=== PATIENT | male | born 1975 | race Caucasian/White ===

== ENCOUNTER 2016-11-29 09:47 | Day surgery (SDC) | payer MEDICAID ==
[~2016-11-29 09:47] MED LIST: LACTATED RINGERS 1000 ML IV PRN; LIDOCAINE 0.5% INJ-PF (5 MG/ML) 50 ML SDV SUBCUT PRN
[2016-11-29] MEDS ORDERED: ALBUTEROL SULFATE 0.083% NEB 2.5 MG/3 ML AMPUL NEB ONE (10:41)
[2016-11-29] MEDS ORDERED: MIDAZOLAM 2 MG/2 ML INJ ONE (10:51)
[2016-11-29] MEDS ORDERED: PROPOFOL INJ 200 MG/20 ML VIAL IV ONE (10:52)
--- NOTE | 2016-11-29 11:41 | Operative Report ---
Operative Report DATE OF SURGERY: 11/29/16 Operative Report: The risks, benefits and alternatives of the procedure including risks of bleeding, perforation requiring surgery are explained to the patient detail and informed consent was obtained. Patient is taken back to the operating room and placed in a left, lateral decubital position. Timeout was called. Propofol medication is provided. A rectal examination was done which did not reveal any masses, tears or fissures. An Olympus videoscope was inserted into the patient' s rectum. Scope was then gradually advanced all the way to the cecum. The cecum was identified by the usual anatomical landmarks including the ileocecal valve as well as the appendiceal office. Photodocumentation was obtained. The scope was then sequentially pulled back out via the various segments of the colon including the ascending colon, hepatic flexure, transverse colon, splenic flexure, descending colon and finding to the rectosigmoid portions of the colon. Retroflexion maneuver was performed. PREOPERATIVE DIAGNOSIS: Blood in stool. POSTOPERATIVE DIAGNOSIS: Diverticulosis. Cecal polyp removed via biopsy forceps. Internal hemorrhoids OPERATION: Colonoscopy with biopsy SURGEON: JACQUELINE HSU ANESTHESIA: LMAC TISSUE REMOVED OR ALTERED: Polyp, as described above it is removed COMPLICATIONS: None. ESTIMATED BLOOD LOSS: None. INTRAOPERATIVE FINDINGS: As described above. PROCEDURE: Patient tolerated procedure well. No immediate postprocedure complications are noted. Patient discharged in good condition. Discharge date 11/29/2016. Discharge diet: Regular. Discharge activity: Regular. 2-3 week follow-up to discuss findings. Patient is instructed to call the office or proceed to the emergency room should there be any further problems or questions. Surveillance colonoscopy in 5 years. We will wait on pathology.
[2016-11-29 13:25] VITALS: BP 134/79
[2016-11-29] MEDS ORDERED: GLYCOPYRROLATE INJ 0.4 MG/2 ML VIAL ONE (13:29)
[2016-11-29] MEDS ORDERED: ONDANSETRON HCL INJ/PF 4 MG/2 ML SDV ONE (13:29)
[2016-11-29] MEDS ORDERED: METOCLOPRAMIDE HCL INJ/PF 10 MG/2 ML SDV ONE (13:29)
== END 2016-11-29 13:20 | disposition home or self-care (01) ==
LOC: OROUT 09:47
PROVIDERS: ATTEND Internal Medicine Gastroenterology
PROC: 0DBH8ZX Excision of Cecum, Via Natural or Artificial Opening Endoscopic, Diagnostic (ICD-10-PCS; principal; 2016-11-29 12:00)
DX: K92.1 Melena (principal); K64.8 Other hemorrhoids; D12.0 Benign neoplasm of cecum; K57.30 Diverticulosis of large intestine without perforation or abscess without bleeding; J44.9 Chronic obstructive pulmonary disease, unspecified; K21.9 Gastro-esophageal reflux disease without esophagitis; M19.90 Unspecified osteoarthritis, unspecified site; E66.9 Obesity, unspecified; G47.30 Sleep apnea, unspecified; Z68.35 Body mass index [BMI] 35.0-35.9, adult
CPT/HCPCS: 45380; 88305 ×2; J2250; J3490; J2765; J2405; J2704; 810

== ENCOUNTER 2017-06-24 10:42 | Day surgery (SDC) | payer MEDICAID ==
[~2017-06-24 10:42] MED LIST changes: +1/2 NORMAL SALINE 1,000 ML IV PRN; -LACTATED RINGERS 1000 ML IV PRN
[2017-06-24 11:44] LABS: HEMATOCRIT 42.4 % (37.9-51.0); HEMOGLOBIN 15.1 g/dL (13.5-17.0); MEAN CORPUSCULAR HEMOGLOBIN 30.2 pg (27.0-33.4); MEAN CORPUSCULAR HGB CONC 35.6 g/dL (32.0-36.0); MEAN CORPUSCULAR VOLUME 85 fl (80-97); PLATELET COUNT 249 10^3/uL (150-450); RED BLOOD COUNT 5.02 10^6/uL (4.35-5.55); RED CELL DISTRIBUTION WIDTH 12.8 % (11.5-14.0); WHITE BLOOD COUNT 6.3 10^3/uL (4.0-10.5)
[2017-06-24] MEDS ORDERED: PROPOFOL INJ 200 MG/20 ML VIAL IV ONE (12:17)
[2017-06-24] MEDS ORDERED: DIPHENHYDRAMINE HCL 50 MG/ML VIAL IV PRN (13:19)
[2017-06-24] MEDS ORDERED: MEPERIDINE HCL/PF INJ 25 MG/1 ML DISP.SYRIN IV PRN (13:19)
[2017-06-24] MEDS ORDERED: FENTANYL CITRATE INJ/PF 100 MCG/2 ML AMPUL IV PRN ×3 (13:19)
[2017-06-24] MEDS ORDERED: OXYCODONE-ACETAMINOPHEN 5-325 MG TABLET PO PRN ×2 (13:19)
[2017-06-24] MEDS ORDERED: MORPHINE SULFATE 10 MG/ML INJ IV PRN (13:19)
[2017-06-24] MEDS ORDERED: PROMETHAZINE HCL INJ 25 MG/1 ML VIAL IV PRN ×2 (13:19)
--- NOTE | 2017-06-24 13:25 | Operative Report ---
Operative Report DATE OF SURGERY: 06/24/17 Operative Report: The risks, benefits and alternatives of the procedure including risks of bleeding, perforation requiring surgery are explained to the patient in detail and informed consent was obtained. Patient is taken back to the operating room placed in the left, lateral decubital position. Timeout was called. Propofol medications administered. A rectal examination is done which did not reveal any masses, tears or fissures. An Olympus videoscope was inserted into the patient's rectum. The scope was then carefully advanced all the way to the cecum. The cecum was identified by the usual anatomical landmarks including the ileocecal valve as well as the appendiceal office. Photodocumentation was obtained. Prep was good. Scope was then sequentially pulled back via the various segments of the colon including the ascending colon, hepatic flexure, transverse colon, splenic flexure, descending colon finding to the rectosigmoid portions of the colon. Retroflexion maneuvers performed. PREOPERATIVE DIAGNOSIS: Rectal bleeding POSTOPERATIVE DIAGNOSIS: Internal hemorrhoids. Right-sided diverticulosis. 3 polyps; one in the ascending colon, another in the transverse colon, but that in the descending colon, all of which were removed via snare polypectomy and retrieved. OPERATION: Colonoscopy with snare polypectomy SURGEON: JACQUELINE HSU ANESTHESIA: LMAC TISSUE REMOVED OR ALTERED: As noted above. COMPLICATIONS: None. ESTIMATED BLOOD LOSS: None. INTRAOPERATIVE FINDINGS: As noted above. PROCEDURE: Patient tolerated procedure well. No immediate postprocedure complications are noted. Patient discharged in good condition. Discharge date 06/24/2017. Discharge diet: Regular. Discharge activity: Regular. 2-3 week follow-up to discuss findings. 5 year surveillance colonoscopy. Patient is instructed call the office or proceed to the emergency room should there be any further problems or questions. We will await pathology.
[2017-06-24 15:02] VITALS: BP 135/75
== END 2017-06-24 14:45 | disposition home or self-care (01) ==
LOC: OROUT 10:42
PROVIDERS: ATTEND Internal Medicine Gastroenterology
PROC: 0DBL8ZX Excision of Transverse Colon, Via Natural or Artificial Opening Endoscopic, Diagnostic (ICD-10-PCS; 2017-06-24)
PROC: 0DBM8ZX Excision of Descending Colon, Via Natural or Artificial Opening Endoscopic, Diagnostic (ICD-10-PCS; principal; 2017-06-24 13:00)
DX: K63.5 Polyp of colon (principal); K62.5 Hemorrhage of anus and rectum; K57.30 Diverticulosis of large intestine without perforation or abscess without bleeding; K64.8 Other hemorrhoids; I10 Essential (primary) hypertension; M19.90 Unspecified osteoarthritis, unspecified site; K21.9 Gastro-esophageal reflux disease without esophagitis; J44.9 Chronic obstructive pulmonary disease, unspecified; E78.5 Hyperlipidemia, unspecified; K76.0 Fatty (change of) liver, not elsewhere classified; Z79.899 Other long term (current) drug therapy; Z79.51 Long term (current) use of inhaled steroids
CPT/HCPCS: 45385; 36415; 85027; 88305 ×2; J2704; 811

== ENCOUNTER → 2017-12-01 | Outpatient (CLI) | payer MEDICAID ==
[2017-12-01 09:57] LABS: ABSOLUTE EOSINOPHILS # (AUTO) 0.1 10^3/uL (0.0-0.6); ABSOLUTE MONOCYTES (AUTO) 0.2 10^3/uL (0.1-1.4); ABSOLUTE NEUT (AUTO) 2.2 10^3/uL (1.7-8.2); EOSINOPHILS % (AUTO) 2.4 % (0-6); HEMATOCRIT 37.4 % (37.9-51.0); HEMOGLOBIN 13.6 g/dL (13.5-17.0); LYMPHOCYTES % (AUTO) 44.3 % (13-45); MEAN CORPUSCULAR HGB CONC 36.2 g/dL (32.0-36.0); MEAN CORPUSCULAR VOLUME 83 fl (80-97); MONOCYTES % (AUTO) 4.2 % (3-13); RED BLOOD COUNT 4.52 10^6/uL (4.35-5.55); RED CELL DISTRIBUTION WIDTH 12.4 % (11.5-14.0); SEGMENTED NEUTROPHILS % (AUTO) 48.1 % (42-78); TOTAL CELLS COUNTED % (AUTO) 100 %; WHITE BLOOD COUNT 4.6 10^3/uL (4.0-10.5)
[2017-12-01 10:21] LABS: ALANINE AMINOTRANSFERASE 71 U/L (21-72); ALBUMIN 4.4 g/dL (3.5-5.0); ALKALINE PHOSPHATASE 52 U/L (38-126); ANION GAP 10 (5-19); ASPARTATE AMINO TRANSFERASE 70 U/L (17-59); BILIRUBIN,DIRECT 0.4 mg/dL (0.0-0.4); BILIRUBIN,TOTAL 0.4 mg/dL (0.2-1.3); BLOOD UREA NITROGEN 10 mg/dL (7-20); CALCIUM 9.6 mg/dL (8.4-10.2); CARBON DIOXIDE 27 mmol/L (22-30); CHLORIDE 102 mmol/L (98-107); CHOLESTEROL 249.61 mg/dL (0-200); GLUCOSE 163 mg/dL (75-110); POTASSIUM 4.8 mmol/L (3.6-5.0); SODIUM 139.2 mmol/L (137-145)
[2017-12-01 10:32] LABS: DIRECT LDL 80 mg/dL (<100)
[2017-12-01 10:34] LABS: TRIGLYCERIDES 1204 mg/dL (<150)
[2017-12-01 10:38] LABS: FREE T4 (FREE THYROXINE) 0.65 ng/dL (0.78-2.19)
[2017-12-01 10:48] LABS: PLATELET COUNT 121 10^3/uL (150-450)
[2017-12-01 10:52] LABS: THYROID STIMULATING HORMONE 2.25 uIU/mL (0.47-4.68)
== END ==
LOC: OD 09:02
PROVIDERS: ATTEND Physician Assistant
DX: F31.81 Bipolar II disorder (principal); Z79.899 Other long term (current) drug therapy
CPT/HCPCS: 36415; 80053; 80061; 83036; 84439; 84443; 85025

== ENCOUNTER 2018-08-14 07:48 | Emergency (ER) | payer MEDICAID ==
--- NOTE | 2018-08-14 09:13 | ER Document Report ---
ED Medical Screen (RME) - General Chief Complaint: Toe Injury Stated Complaint: TOE PAIN Time Seen by Provider: 08/14/18 09:09 Primary Care Provider: EFRAIN BARROS PA-C [Primary Care Provider] - Follow up as needed Notes: 43-year-old male patient was splitting wood 6 days ago wearing tennis shoes. A block of wood came down and struck his right first toe. Since then he has had pain, redness, swelling. I have greeted and performed a rapid initial assessment of this patient. A comprehensive ED assessment and evaluation of the patient, analysis of test results and completion of the medical decision making process will be conducted by additional ED providers. TRAVEL OUTSIDE OF THE [place] IN LAST 30 DAYS: No - Related Data Allergies/Adverse Reactions: hornet venom Allergy (Severe, Verified 08/14/18 07:50) Anaphylaxis venom-honey bee [bee venom (honey bee)] Allergy (Severe, Verified 08/14/18 07:50) Anaphylaxis venom-wasp [wasp venom] Allergy (Severe, Verified 08/14/18 07:50) Anaphylaxis Home Medications: oxycodone. gabapentin. cyclobenzapr. voltaren. truvance. nexium. vesicare. magnesium oxide. fenofibrate. singulair. zyrtec. fenofibrate. singulair. metoprolol. wellbutrin. celexa. doxepin. seroquel. advair. albuterol. asirin. nicotine patch Past Medical History - Social History Chew tobacco use (# tins/day): No Frequency of alcohol use: None Drug Abuse: None - Past Medical History Cardiac Medical History: Reports: Hx Hypercholesterolemia, Hx Hypertension Denies: Hx Coronary Artery Disease, Hx Heart Attack Pulmonary Medical History: Reports: Hx Asthma - USES INHALER, Hx COPD - NEB [place] 2X DAILY Denies: Hx Bronchitis, Hx Pneumonia Neurological Medical History: Denies: Hx Cerebrovascular Accident, Hx Seizures Renal/ Medical History: Denies: Hx Peritoneal Dialysis Musculoskeltal Medical History: Reports Hx Arthritis - HANDS, RIGHT SHOULDER Past Surgical History: Reports: Hx Oral Surgery - wisdom teeth removed, Hx Orthopedic Surgery - adalgisa hands, right shoulder - Immunizations Hx Diphtheria, Pertussis, Tetanus Vaccination: Yes History of Influenza Vaccine for 02/2017 - 07/2017 Season: Yes Influenza Administration Date for 02/2017 - 07/2017 Season: 02/23/17 Physical Exam - Vital signs Vitals: Temp Pulse Resp BP Pulse Ox 99.7 F 105 H 16 128/102 H 97 08/14/18 07:57 08/14/18 07:57 08/14/18 07:57 08/14/18 07:57 08/14/18 07:57 Course - Vital Signs Vital signs: Temp Pulse Resp BP Pulse Ox 99.7 F 105 H 16 128/102 H 97 08/14/18 07:57 08/14/18 07:57 08/14/18 07:57 08/14/18 07:57 08/14/18 07:57 Doctor's Discharge - Discharge Referrals: EFRAIN BARROS PA-C [Primary Care Provider] - Follow up as needed
--- NOTE | 2018-08-14 09:36 | RADIOLOGY REPORT (SQ) ---
EXAM DESCRIPTION: TOE RIGHT COMPLETED DATE/TIME: 08/14/2018 9:27 am REASON FOR STUDY: trauma, swelling, redness R 1st toe COMPARISON: None. NUMBER OF VIEWS: Three views. TECHNIQUE: AP, lateral, and oblique images acquired of the right first toe. LIMITATIONS: None. FINDINGS: MINERALIZATION: Normal. BONES: There is a comminuted fracture of the distal phalanx of the great toe. Minimal displacement. JOINTS: No effusions. SOFT TISSUES: There is soft tissue swelling. OTHER: No other significant finding. IMPRESSION: Comminuted mildly displaced fracture of the distal phalanx of the great toe. COMMENT: SITE OF TRAUMA/COMPLAINT MARKED/STAMP COMPLETED: NO. TECHNICAL DOCUMENTATION: JOB ID: [id number] CR2- All Rights Reserved Reading location - IP/workstation name: [email or web address]
[2018-08-14 09:43] LABS: ABSOLUTE EOSINOPHILS # (AUTO) 0.1 10^3/uL (0.0-0.6); ABSOLUTE LYMPHOCYTES (AUTO) 1.3 10^3/uL (0.5-4.7); ABSOLUTE MONOCYTES (AUTO) 0.4 10^3/uL (0.1-1.4); ABSOLUTE NEUT (AUTO) 4.5 10^3/uL (1.7-8.2); BASOPHILS % (AUTO) 0.4 % (0-2); EOSINOPHILS % (AUTO) 1.5 % (0-6); HEMATOCRIT 39.5 % (37.9-51.0); HEMOGLOBIN 14.3 g/dL (13.5-17.0); LYMPHOCYTES % (AUTO) 20.9 % (13-45); MEAN CORPUSCULAR HEMOGLOBIN 30.1 pg (27.0-33.4); MEAN CORPUSCULAR HGB CONC 36.3 g/dL (32.0-36.0); MEAN CORPUSCULAR VOLUME 83 fl (80-97); MONOCYTES % (AUTO) 6.7 % (3-13); PLATELET COUNT 343 10^3/uL (150-450); RED BLOOD COUNT 4.76 10^6/uL (4.35-5.55); RED CELL DISTRIBUTION WIDTH 12.6 % (11.5-14.0); SEGMENTED NEUTROPHILS % (AUTO) 70.5 % (42-78); TOTAL CELLS COUNTED % (AUTO) 100 %; WHITE BLOOD COUNT 6.4 10^3/uL (4.0-10.5)
[2018-08-14 10:01] LABS: ALANINE AMINOTRANSFERASE 43 U/L (21-72); ALBUMIN 4.7 g/dL (3.5-5.0); ALKALINE PHOSPHATASE 80 U/L (38-126); ANION GAP 12 (5-19); ASPARTATE AMINO TRANSFERASE 40 U/L (17-59); BILIRUBIN,DIRECT 0.2 mg/dL (0.0-0.4); BILIRUBIN,TOTAL 0.5 mg/dL (0.2-1.3); BLOOD UREA NITROGEN 8 mg/dL (7-20); CALCIUM 10.5 mg/dL (8.4-10.2); CARBON DIOXIDE 28 mmol/L (22-30); CHLORIDE 99 mmol/L (98-107); GLUCOSE 129 mg/dL (75-110); POTASSIUM 4.7 mmol/L (3.6-5.0); SODIUM 138.5 mmol/L (137-145); URIC ACID 5.5 mg/dL (3.5-8.5)
[2018-08-14] MEDS ORDERED: CEFAZOLIN 1 GM/D5W RTU 1 GM/50 ML RTUPB IV ONE (10:23)
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
--- NOTE | 2018-08-14 11:40 | PDOC CONSULTATION ---
Consultation Consult Date: 08/14/18 Consult reason:: Right great toe contusion/fracture History of Present Illness Admission Date/PCP: EFRAIN BARROS PA-C History of Present Illness: ALFA LYONS is a 43 year old male Patient is a 43-year-old white male with a noncontributory past medical history who sustained trauma to his right great toe when using a log splitter 6 days ago. The patient states that the nail fell off almost immediately. He separately had swelling erythema and induration which has been probably constant since the second day. Past Medical History Cardiac Medical History: Reports: Hyperlipidema, Hypertension Denies: Coronary Artery Disease, Myocardial Infarction Pulmonary Medical History: Reports: Asthma - USES INHALER, Chronic Obstructive Pulmonary Disease (COPD) - NEB [place] 2X DAILY Denies: Bronchitis, Pneumonia Neurological Medical History: Denies: Seizures Musculoskeltal Medical History: Reports: Arthritis - HANDS, RIGHT SHOULDER Hematology: Denies: Anemia Past Surgical History Past Surgical History: Reports: Orthopedic Surgery - adalgisa hands, right shoulder Social History Information Source: Patient, Dr. Office Lives with: Spouse/Significant other Smoking Status: Current Every Day Smoker Family History Family History: Reviewed & Not Pertinent Parental Family History Reviewed: No Children Family History Reviewed: No Sibling(s) Family History Reviewed.: No Medication/Allergy Home Medications: Albuterol Sulfate [Proair Respiclick] 2 puff IH ASDIR PRN 01/01/16 Bupropion HCl [Wellbutrin Sr 150 mg Tablet] 1 tab PO DAILY 01/01/16 Bupropion HCl [Wellbutrin Xl 300mg 24hr Tablet] 1 tab PO DAILY 01/01/16 Citalopram Hydrobromide [Celexa 40 mg Tablet] 1 tab PO DAILY 01/01/16 Cyclobenzaprine HCl 5 mg PO TID 01/01/16 Fluticasone/Salmeterol [Advair 250-50 Diskus 28 dose] 1 inh IH BID 01/01/16 Gabapentin 800 mg PO TID 01/01/16 Montelukast Sodium [Singulair 10 mg Tablet] 10 mg PO QPM 01/01/16 Multivitamin [Multivitamins] 1 each PO DAILY 01/01/16 Oxycodone HCl/Acetaminophen [Percocet 10-325 Mg Tablet] 1 each PO Q6 PRN 01/01/16 Solifenacin Succinate [Vesicare] 10 mg PO DAILY 01/01/16 Aripiprazole [Abilify 15 mg Tablet] 15 mg PO DAILY 01/02/16 Aspirin [Aspirin 81 mg Chewable Tablet] 81 mg PO DAILY 01/02/16 Esomeprazole Mag Trihydrate [Nexium] 40 mg PO DAILY 01/02/16 Nicotine Polacrilex [Nicorette] 4 mg BC ASDIR PRN 01/02/16 Nicotine [Nicoderm 21 mg/24 Hr Transderm Patch] 1 patch TD DAILY 01/02/16 Cetirizine HCl [Zyrtec] 1 cap PO QHS 11/28/16 Quetiapine Fumarate [Seroquel] 200 mg PO QHS 11/28/16 Fenofibrate 160 mg PO DAILY 06/24/17 Magnesium Oxide [Magnesium] 400 mg PO DAILY 06/24/17 Metoprolol Succinate 25 mg PO DAILY 06/24/17 Hydrocodone/Acetaminophen [[place] 5-325 mg Tablet] 1 tab PO Q6 #8 tablet 08/14/18 Sulfamethoxazole/Trimethoprim [Bactrim Ds Tablet] 1 each PO BID #20 tablet 08/14/18 Allergies/Adverse Reactions: hornet venom Allergy (Severe, Verified 08/14/18 07:50) Anaphylaxis venom-honey bee [bee venom (honey bee)] Allergy (Severe, Verified 08/14/18 07:50) Anaphylaxis venom-wasp [wasp venom] Allergy (Severe, Verified 08/14/18 07:50) Anaphylaxis Review of Systems All systems: as per H Physical Exam Vital Signs: Temp Pulse Resp BP Pulse Ox 37.6 C 105 H 16 128/102 H 97 08/14/18 07:57 08/14/18 07:57 08/14/18 07:57 08/14/18 07:57 08/14/18 07:57 Intake & Output 08/13/18 08/14/18 08/15/18 06:59 06:59 06:59 Weight 95.7 kg Physical Exam: The patient is a stocky middle-aged white male lying in [facility] with his lower extremity extended out in front of him. There is a blue ink jennifer which demarcates the erythema and extends circumferentially at the level of the MTP joint and slightly more proximal along its medial aspect. The patient has lost his great toe nail. There is some abrasions over the dorsum of the proximal phalanx. Passive range of motion of the toe is painful. There is brisk capillary refill. Sensory examination is intact to light touch. There is no clear drainage at this point. General appearance: PRESENT: no acute distress Head exam: PRESENT: normocephalic Respiratory exam: PRESENT: unlabored Cardiovascular exam: PRESENT: RRR Pulses: PRESENT: +1 pedal pulses bilateral Vascular exam: PRESENT: normal capillary refill GI/Abdominal exam: PRESENT: soft Rectal exam: PRESENT: deferred Extremities exam: PRESENT: other - Examination of the toe as above Neurological exam: PRESENT: alert, awake, oriented to person, oriented to place, oriented to time, oriented to situation. ABSENT: motor sensory deficit Psychiatric exam: PRESENT: appropriate affect, normal mood. ABSENT: homicidal ideation, suicidal ideation Skin exam: PRESENT: dry, intact, warm. ABSENT: cyanosis, rash Results Laboratory Results: 08/14/18 09:30 08/14/18 09:30 08/14/18 08/14/18 09:30 09:30 WBC 6.4 RBC 4.76 Hgb 14.3 Hct 39.5 MCV 83 MCH 30.1 MCHC 36.3 H RDW 12.6 Plt Count 343 Seg Neutrophils % 70.5 Lymphocytes % 20.9 Monocytes % 6.7 Eosinophils % 1.5 Basophils % 0.4 Absolute Neutrophils 4.5 Absolute Lymphocytes 1.3 Absolute Monocytes 0.4 Absolute Eosinophils 0.1 Absolute Basophils 0.0 Sodium 138.5 Potassium 4.7 Chloride 99 Carbon Dioxide 28 Anion Gap 12 BUN 8 Creatinine 1.13 Est GFR ( Amer) > 60 Est GFR (Non-Af Amer) > 60 Glucose 129 H Uric Acid 5.5 Calcium 10.5 H Total Bilirubin 0.5 AST 40 ALT 43 Alkaline Phosphatase 80 Total Protein 8.0 Albumin 4.7 Impressions: Toe X-Ray 08/14/18 09:12 IMPRESSION: Comminuted mildly displaced fracture of the distal phalanx of the great toe. Status: Imported from PACS Assessment & Plan - Diagnosis (1) Fracture of distal phalanx of right great toe Qualifiers: Encounter type: initial encounter Fracture type: open Fracture alignment: displaced Qualified Code(s): S92.421B - Displaced fracture of distal phalanx of right great toe, initial encounter for open fracture Is this a current diagnosis for this admission?: Yes Plan: 43-year-old with a crush injury to the right great toe approximately 6 days ago. He has an underlying fracture and has lost his great toenail. There is erythema and induration but without any active drainage. My clinical suspicion is that this represents a contusion/crush injury to the distal phalanx and is actually not infectious in etiology. I think at this point the patient can be discharged with instruction to elevate the toe, ice it, he is furnished with prescriptions by Dr. Grady for [facility] and [place]. The patient can follow-up myself in the [facility] for surgery on Friday at 8 AM. He is instructed to call the hospital absorption plant operator [phone] if there is an acute exacerbation in his condition and to have me paged directly. - Time Time Spent: 50 to 70 Minutes Anticipated discharge: Home Within: Other - Now - Inpatient Certification Based on my medical assessment, after consideration of the patient's comorbidities, presenting symptoms, or acuity I expect that the services needed warrant INPATIENT care.: No I certify that my determination is in accordance with my understanding of Medicare's requirements for reasonable and necessary INPATIENT services [42 CFR 412.3e].: No - Plan Summary Plan Summary: Patient to be discharged home with a restricted activity basis and follow-up with Dr. Guzman and [facility] surgery on Friday at 8 AM.
[2018-08-14 11:54] VITALS: BP 136/92
== END 2018-08-14 11:57 | disposition home or self-care (01) ==
LOC: ER 07:48
DX: S92.421B Displaced fracture of distal phalanx of right great toe, initial encounter for open fracture (principal); L08.9 Local infection of the skin and subcutaneous tissue, unspecified; W20.8XXA Other cause of strike by thrown, projected or falling object, initial encounter; F17.200 Nicotine dependence, unspecified, uncomplicated; E78.00 Pure hypercholesterolemia, unspecified; I10 Essential (primary) hypertension
CPT/HCPCS: 36415; 80053; 84550; 85025; 99284

== ENCOUNTER 2018-08-19 09:29 | Day surgery (SDC) | payer MEDICAID ==
[2018-08-19 09:58] LABS: HEMOGLOBIN 14.4 g/dL (13.5-17.0); MEAN CORPUSCULAR HEMOGLOBIN 29.2 pg (27.0-33.4); MEAN CORPUSCULAR HGB CONC 35.2 g/dL (32.0-36.0); MEAN CORPUSCULAR VOLUME 83 fl (80-97); PLATELET COUNT 419 10^3/uL (150-450); RED BLOOD COUNT 4.93 10^6/uL (4.35-5.55); WHITE BLOOD COUNT 6.2 10^3/uL (4.0-10.5)
[2018-08-19] MEDS ORDERED: FENTANYL CITRATE INJ/PF 100 MCG/2 ML AMPUL ONE (10:09)
[2018-08-19] MEDS ORDERED: PROPOFOL INJ 200 MG/20 ML VIAL IV ONE (10:09)
[2018-08-19] MEDS ORDERED: MIDAZOLAM 2 MG/2 ML INJ ONE ×2 (10:09→10:40)
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
[2018-08-19 10:13] LABS: BLOOD UREA NITROGEN 10 mg/dL (7-20); CALCIUM 10.4 mg/dL (8.4-10.2); CARBON DIOXIDE 26 mmol/L (22-30); GLUCOSE 136 mg/dL (75-110); POTASSIUM 4.8 mmol/L (3.6-5.0); SODIUM 137.8 mmol/L (137-145)
[2018-08-19 10:16] LABS: ANION GAP 10 (5-19); CHLORIDE 102 mmol/L (98-107)
[2018-08-19] MEDS ORDERED: LIDOCAINE 1% INJ-PF (10 MG/ML) 30 ML SDV ONE (10:22)
[2018-08-19] MEDS ORDERED: BUPIVACAINE HCL 0.25 % INJ/PF (2.5 MG/1 ML) 30 ML VIAL ONE (10:22)
[2018-08-19] MEDS ORDERED: MORPHINE SULFATE 10 MG/ML INJ ONE (10:40)
[2018-08-19] MEDS ORDERED: CEFAZOLIN INJ 1 GM VIAL ONE (10:55)
[2018-08-19] MEDS ORDERED: MEPERIDINE HCL/PF INJ 25 MG/1 ML DISP.SYRIN IV PRN (11:01)
[2018-08-19] MEDS ORDERED: DIPHENHYDRAMINE HCL 50 MG/ML VIAL IV PRN (11:01)
[2018-08-19] MEDS ORDERED: FENTANYL CITRATE INJ/PF 100 MCG/2 ML AMPUL IV PRN ×3 (11:01)
[2018-08-19] MEDS ORDERED: MORPHINE SULFATE 10 MG/ML INJ IV PRN (11:01)
[2018-08-19] MEDS ORDERED: PROMETHAZINE HCL INJ 25 MG/1 ML VIAL IV PRN ×2 (11:01)
--- NOTE | 2018-08-19 11:08 | Discharge Summary ---
Discharge Summary (SDC) - Discharge Final Diagnosis: Right great toe abscess Date of Surgery: 08/19/18 Discharge Date: 08/19/18 Condition: Good Treatment or Instructions: Elevate right lower extremity. Return to the office on Friday for dressing change Prescriptions: Oxycodone HCl/Acetaminophen [Percocet 10-325 mg Tablet] 1 each PO Q6 PRN #40 tablet PRN Reason: Sulfamethoxazole/Trimethoprim [Bactrim Ds Tablet] 1 each PO BID #20 tablet Referrals: CATALINA SALINAS DO [Primary Care Provider] - Discharge Diet: As Tolerated, Regular Respiratory Treatments at Home: Deep Breathing/Coughing Discharge Activity: Balance Activity w/Rest, No tub bath Home Care Assistance: None Needed Adaptive Devices on Discharge: Axillary Crutches Report the Following to Your Physician Immediately: Shortness of Breath, Fever over 101 Degrees, Drainage-Foul Smelling
--- NOTE | 2018-08-19 11:10 | Operative Report ---
Operative Report DATE OF SURGERY: 08/19/18 PREOPERATIVE DIAGNOSIS: Right great toe abscess OPERATION: I&D right great toe SURGEON: BRUCE RICHARDS ANESTHESIA: LMAC TISSUE REMOVED OR ALTERED: Cultures x2 to microbiology ESTIMATED BLOOD LOSS: 25 PROCEDURE: With the patient supine on the operative table the right lower extremity prepped and draped in sterile fashion. A digital great toe block is performed with a combination of Marcaine, and Xylocaine. Subsequent longitudinal incisions made over the dorsal medial aspect of the great toe beginning at the nail and extendi ng proximally to the M TP joint. This emanates a large amount of what appears to be liquefied hematoma. There is really no evidence of purulence. This is cultured and sent to microbiology. The wound was then irrigated and debrided using combination of scraping and a rondure. This does not enter the extensor tendon compartment. The wound is then packed with iodoform gauze and loosely approximated with nylon. A sterile compressive dressing is applied and the patient's return to PACU in satisfactory condition.
[2018-08-19] MEDS ORDERED: OXYCODONE-ACETAMINOPHEN 5-325 MG TABLET PO PRN ×2 (12:06)
[2018-08-19] MEDS ORDERED: OXYCODONE-ACETAMINOPHEN 5-325 MG TABLET ONE (12:11)
[2018-08-19 13:07] VITALS: BP 114/84
--- NOTE | 2018-08-19 21:27 | EKG REPORT ---
SEVERITY:- NORMAL ECG - SINUS RHYTHM : Confirmed by: Jessika Wilburn MD 19-Aug-2018 21:26:23
== END 2018-08-19 13:00 | disposition home or self-care (01) ==
LOC: OROUT 09:29
PROVIDERS: ATTEND Orthopaedic Surgery
DX: L02.611 Cutaneous abscess of right foot (principal); B95.61 Methicillin susceptible Staphylococcus aureus infection as the cause of diseases classified elsewhere; I10 Essential (primary) hypertension; J44.9 Chronic obstructive pulmonary disease, unspecified; N32.81 Overactive bladder; F17.210 Nicotine dependence, cigarettes, uncomplicated; Z79.51 Long term (current) use of inhaled steroids; Z79.82 Long term (current) use of aspirin; Z79.899 Other long term (current) drug therapy
CPT/HCPCS: 36415; 87070; 87205; 85027; 87075; 87077; 80048; 87186; 71045; 93005; 93010; 10060; J2250; J0690; J3010; J3490; J2270; S0020; J2704; 400

== ENCOUNTER → 2019-12-03 | Outpatient (CLI) | payer MEDICAID ==
--- NOTE | 2019-12-03 10:49 | RADIOLOGY REPORT (SQ) ---
EXAM DESCRIPTION: ANKLE RIGHT COMPLETE IMAGES COMPLETED DATE/TIME: 12/03/2019 8:58 am REASON FOR STUDY: M25.571 PAIN IN RIGHT ANKLE AND JOINTS OF RIGHT FOOT COMPARISON: None. NUMBER OF VIEWS: Three views right ankle. LIMITATIONS: None. FINDINGS: There is no acute or significant bone, joint or soft tissue abnormality. OTHER: No other significant finding. IMPRESSION: NORMAL STUDY. TECHNICAL DOCUMENTATION: JOB ID: [id number] Reading location - IP/workstation name: [email or web address]
== END ==
LOC: RAD 08:41
PROVIDERS: ATTEND Nurse Practitioner Family
DX: M25.571 Pain in right ankle and joints of right foot (principal)

== ENCOUNTER → 2020-06-08 | Outpatient (CLI) | payer MEDICAID ==
--- NOTE | 2020-06-08 12:20 | RADIOLOGY REPORT (SQ) ---
EXAM DESCRIPTION: L SPINE WHOLE IMAGES COMPLETED DATE/TIME: 06/08/2020 10:53 am REASON FOR STUDY: (M54.9)DORSALGIA, UNSPECIFIED M54.9 DORSALGIA, UNSPECIFIED M25.551 PAIN IN RIGHT HIP R05 COUGH COMPARISON: None. NUMBER OF VIEWS: Five views including obliques. TECHNIQUE: AP, lateral, oblique, and sacral radiographic images acquired of the lumbar spine. LIMITATIONS: None. FINDINGS: MINERALIZATION: Normal. SEGMENTATION: Normal. No transitional anatomy. ALIGNMENT: Normal. VERTEBRAE: Maintained height. No fracture or worrisome bone lesion. DISCS: Preserved height. No significant osteophytes or end plate irregularity. POSTERIOR ELEMENTS: Pedicles and facets are intact. No pars defect or posterior arch defects. HARDWARE: None in the spine. PARASPINAL SOFT TISSUES: Normal. PELVIS: Intact as visualized. No fractures or worrisome bone lesions. SI joints intact. OTHER: No other significant finding. IMPRESSION: NORMAL 5 VIEW LUMBAR SPINE. TECHNICAL DOCUMENTATION: JOB ID: [id number] 2010 [employer]- All Rights Reserved Reading location - IP/workstation name: [email or web address]
--- NOTE | 2020-06-08 12:21 | RADIOLOGY REPORT (SQ) ---
EXAM DESCRIPTION: HIP RIGHT AP/LATERAL IMAGES COMPLETED DATE/TIME: 06/08/2020 10:53 am REASON FOR STUDY: (M54.9)DORSALGIA, UNSPECIFIED;(M25.551)PAIN IN RIGHT HIP M54.9 DORSALGIA, UNSPECI FIED M25.551 PAIN IN RIGHT HIP R05 COUGH COMPARISON: None. NUMBER OF VIEWS: Two views. TECHNIQUE: AP pelvis and additional frog legview of the right hip. LIMITATIONS: None. FINDINGS: MINERALIZATION: Normal. RIGHT HIP: No fracture or dislocation. No worrisome bone lesions. No contour deformity. No joint sp sanchez narrowing. LEFT HIP: No fracture or dislocation. No worrisome bone lesions. Limited views. PUBIS AND ISCHIUM: No fracture. PELVIS: No fracture. SACRUM: No fracture or dislocation. No worrisome bone lesions. LOWER LUMBAR SPINE: No fracture or dislocation. No worrisome bone lesions. No significant disc disea se. SOFT TISSUES: No findings. OTHER: No other significant finding. IMPRESSION: NEGATIVE STUDY OF THE RIGHT HIP. NO EXPLANATION FOR PAIN. TECHNICAL DOCUMENTATION: JOB ID: [id number] 2010 [employer]- All Rights Reserved Reading location - IP/workstation name: [email or web address]
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
== END ==
LOC: RAD 10:27
PROVIDERS: ATTEND Nurse Practitioner Family
DX: M25.551 Pain in right hip (principal); M54.9 Dorsalgia, unspecified; R05 Cough
CPT/HCPCS: 71046; 72110